=== PATIENT | female | born 1975 | race Caucasian/White ===

== ENCOUNTER 2018-07-09 23:03 | Emergency (ER) | payer OTHER ==
--- NOTE | 2018-07-10 00:31 | EDPHY ---
H & P Stated Complaint: 2000: COLLISION WITH OTHER PLAYERS, INCREASING SWELLING/PAIN LEFT CALF - Personal History LMP (Females 10-55): Hysterectomy Current Tetanus/Diphtheria Vaccine: Yes - Medical/Surgical History Hx Asthma: Yes Hx Chronic Respiratory Disease: No Other PMH: HYSTERECTOMY, ENDOMETRIOSIS, CILLIAC , ASTHMA - Social History Smoking Status: Never smoked Time Seen by Provider: 07/09/18 23:34 HPI/ROS: Chief complaint: Left calf pain History of present illness: This is a 42-year-old female who presents to the emergency department for left calf pain. Patient was playing soccer, she collided with another player. She has developed pain and swelling in the left calf at the site of the collision. It makes it difficult to ambulate but she still can ambulate. She states she is moving her ankle well. No report of open wounds. No abnormal coolness or paresthesias in the leg. No other trauma reported. (Nelson Minor) - Physical Exam Exam: General: Alert, nontoxic. Skin: No open wounds to the left lower extremity. Musculoskeletal: There is mild tenderness to the mid belly of the left calf region. Associated swelling. However compartments remain soft. She can move all digits in the foot. She is moving the ankle in all hernández well. The Achilles feels intact. The knee is nontender and she is moving it well. Vascular: DP and PT pulses 2+. Neurologic: Sensation intact throughout the left lower extremity. (Nelson Minor) Constitutional: Initial Vital Signs Temperature (C) 36.6 C 07/09/18 23:20 Heart Rate 61 07/09/18 23:20 Respiratory Rate 18 07/09/18 23:20 Blood Pressure 149/62 H 07/09/18 23:20 O2 Sat (%) 96 07/09/18 23:20 O2 Delivery Mode Room Air Allergies/Adverse Reactions: Sulfa (Sulfonamide Antibiotics) Allergy (Verified 07/09/18 23:19) Home Medications: Medication Instructions Recorded Lisinopril 07/09/18 Medical Decision Making - Diagnostics Imaging: I viewed and interpreted images myself ED Course/Re-evaluation: Patient seen under the supervision of my secondary supervising physician Dr. Jennifer Lopez. Patient presents for a left calf injury. She has good musculoskeletal control of the knee and ankle. The leg is neurovascularly intact. The Achilles does appear intact. Pain and swelling is in the muscle belly. I suspect she has torn part of her calf muscles. Home care is discussed including the use of ibuprofen, ice, elevation. She is placed in a walking boot and given crutches. She is asked to follow up with Orthopedics for recheck and referral information is provided. Return precautions are given. The patient voiced understanding and agreement plan. (Nelson Minor) PHYSICIAN DOCUMENTATION: The patient was evaluated and managed by the Physician Inventory Worker. My co- signature indicates that I have reviewed this chart and I agree with the findings and plan of care as documented. I am the secondary supervising physician. (Jennifer Lopez) Differential Diagnosis: Included but not limited to contusion, hematoma, muscle tear, Achilles tendon rupture, fracture (Nelson Minor) Departure - Departure Disposition: Home, Routine, Self-Care Clinical Impression: Strain of calf muscle Condition: Good Instructions: Tendon Rupture (ED) Additional Instructions: Follow-up with an orthopedic doctor for continued evaluation and care Use ibuprofen 600 mg 3 times a day for the next 2-3 days for pain and swelling Elevate the leg as much as possible Ice the injury, 20 min on, 3 times daily for the next 3 days Remain nonweightbearing, use the crutches and to not walk on the foot If symptoms worsen or new symptoms develop return to the emergency department for recheck Referrals: SHIVAM POLLOCK [Primary Care Provider] - As per Instructions Patricia Schwarz MD [Medical Doctor] - As per Instructions
[2018-07-10 01:00] VITALS: BP 134/96
== END 2018-07-10 00:48 | disposition home or self-care (01) ==
DX: S86.812A Strain of other muscle(s) and tendon(s) at lower leg level, left leg, initial encounter (principal); W50.0XXA Accidental hit or strike by another person, initial encounter; Y93.66 Activity, soccer; Y92.322 Soccer field as the place of occurrence of the external cause
CPT/HCPCS: L4386